=== PATIENT | female | born 1955 | race Asian ===

== ENCOUNTER 2016-11-11 08:43 | Day surgery (SDC) | payer OTHER ==
[~2016-11-11 08:43] MED LIST: DIPHENHYDRAMINE HCL 50 MG/ML VIAL ONE; EPINEPHRINE INJ 1 MG/10 ML DISP.SYRIN ONE; FLUMAZENIL INJ 0.5 MG/5 ML VIAL IV ONE; GLUCAGON,HUMAN RECOMB 1 MG INJ ONE; NALOXONE HCL INJ/PF 0.4 MG/1 ML SDV ONE; ONDANSETRON HCL INJ/PF 4 MG/2 ML SDV ONE; PROMETHAZINE HCL INJ 25 MG/1 ML VIAL ONE
[2016-11-11] MEDS: MIDAZOLAM 2 MG/2 ML INJ ONE ×3 (09:05→09:15)
[2016-11-11] MEDS: FENTANYL CITRATE INJ/PF 100 MCG/2 ML AMPUL ONE ×3 (09:07→09:18)
--- NOTE | 2016-11-11 10:20 | Operative Report ---
Operative Report DATE OF SURGERY: 11/11/16 Operative Report: The risks, benefits and alternatives of the procedure including risks of bleeding, perforation requiring surgery are explained to the patient in detail and informed consent is obtained. Patient was placed in a left lateral decubital position taken back to the endoscopy suite. Timeout is called. A rectal examination is done which did not reveal any masses tears or fissures. An Olympus videoscope this inserted into the patient's rectum. The scope was then slowly advance to the cecum. The cecum is identified by the usual anatomical landmarks of the ileocecal valve and the appendiceal office prep is good photodocumentation was obtained cecum is reached by 60 cm. The scope was then sequentially pulled back via the various segments of the colon including the ascending colon, hepatic flexure transverse colon splenic flexure descending colon and finally into the rectosigmoid colon , retroflexion maneuvers performed. PREOPERATIVE DIAGNOSIS: Colorectal cancer screening, change of bowel habits POSTOPERATIVE DIAGNOSIS: Mild right-sided colitis status post biopsy. Internal hemorrhoids OPERATION: Colonoscopy with biopsy SURGEON: ABELARDO DESIR ANESTHESIA: Moderate Sedation - 4 mg of Versed, 75 g of fentanyl. TISSUE REMOVED OR ALTERED: Right colon specimens obtained COMPLICATIONS: None. ESTIMATED BLOOD LOSS: none. INTRAOPERATIVE FINDINGS: Mild right-sided inflammation, no masses, AVMs, diverticulosis noted. Internal hemorrhoids PROCEDURE: Patient tolerated the procedure well. No immediate postprocedure complications are noted. Patient is discharged in good condition. Discharge date :11.11.16 Discharge diet: Regular. Discharge activity: Regular. 2-3 week follow-up to discuss findings. We'll await on biopsies. Patient is instructed to call the office or proceed to the emergency room if there are any further problems or questions. Surveillance colonoscopy in 10 years.
[2016-11-11 11:06] VITALS: BP 114/51
== END 2016-11-11 10:45 | disposition home or self-care (01) ==
LOC: END 08:43
PROVIDERS: ATTEND Internal Medicine Gastroenterology
PROC: 0DBF8ZX Excision of Right Large Intestine, Via Natural or Artificial Opening Endoscopic, Diagnostic (ICD-10-PCS; principal; 2016-11-11 09:00)
DX: K52.9 Noninfective gastroenteritis and colitis, unspecified (principal); K62.89 Other specified diseases of anus and rectum; K64.8 Other hemorrhoids; E11.9 Type 2 diabetes mellitus without complications; I10 Essential (primary) hypertension; Z79.82 Long term (current) use of aspirin; Z88.0 Allergy status to penicillin
CPT/HCPCS: 45380; 88305 ×2; J2250; J3010; J2405; J0171; J1200; J1610; J2310; J2550; J3490